=== PATIENT | female | born 1990 | race Two or more races ===

== ENCOUNTER 2021-10-10 13:01 | Emergency (ER) | payer OTHER ==
[~2021-10-10] VITALS: Ht 160 cm; Wt 67.1 kg
== END 2021-10-10 15:59 | disposition home or self-care (01) ==
LOC: ER 13:01
DX: S93.492A Sprain of other ligament of left ankle, initial encounter (principal); Y93.01 Activity, walking, marching and hiking; Y93.89 Activity, other specified; Y92.89 Other specified places as the place of occurrence of the external cause